=== PATIENT | male | born 1955 | race Caucasian/White ===

== ENCOUNTER 2018-06-20 03:41 | Inpatient (IN) ==
[2018-06-20] MEDS ORDERED: ASPIRIN 325 MG TABLET PO STA (04:02)
[2018-06-20] MEDS ORDERED: NITROGLYCERIN 2% OINT 1 INCH/GM PACK TOP STA (04:11)
[2018-06-20 04:16] LABS: Basophils # 0.1 10*3/uL (0.0-0.2); Basophils % 1.1 % (0.0-0.8); Eosinophils # 0.3 10*3/uL (0.0-0.87); Eosinophils % 3.1 % (0.00-10.9); Hematocrit 46.9 VOL% (42.0-52.0); Hemoglobin 15.3 GM/DL (14.0-18.0); Immature Granulocytes % 0.3 %; Immature Granulocytes Absolute 0.03 #; Lymphocytes # 3.8 10*3/uL (1.4-4.0); Lymphocytes % 40.4 % (21.2-54.2); Mean Corpuscular HGB Conc 32.6 GM/DL (32-36); Mean Corpuscular Hemoglobin 29 PG (27-34); Mean Corpuscular Volume 88.3 FL (87-102); Mean Platelet Volume 11.5 FL (9.6-12.0); Monocytes # 0.6 10*3/uL (0.11-0.8); Monocytes % 6.1 % (1.7-12.7); Neutrophils # 4.6 10*3/uL (1.4-7.4); Platelet Count 203 T/CUMM (130-400); Red Blood Count 5.31 MC/CUMM (3.8-5.5); Red Cell Distribution Width 12.7 % (9.3-17.3); White Blood Count 9.4 T/CUMM (4-12)
[2018-06-20 04:36] LABS: Albumin 3.9 G/DL (3.4-5.0); Bilirubin,Total 0.5 MG/DL (0.2-1.0); Calcium 8.6 MG/DL (8.5-10.1); Osmolality,Calculated 284.1 MOS/KG (273-304); Potassium 3.7 MMOL/L (3.5-5.1); Total Protein 7.4 G/DL (6.4-8.3)
[2018-06-20] MEDS ORDERED: NICOTINE 21 MG/24 HR PATCH TRANSDERM PRN (06:10)
[2018-06-20] MEDS ORDERED: ACETAMINOPHEN 325 MG TABLET PO PRN (06:10)
[2018-06-20] MEDS ORDERED: ONDANSETRON 4 MG/2 ML VIAL IV PRN (06:10)
[2018-06-20] MEDS ORDERED: diphenhydrAMINE CAP 25 MG CAPSULE PO PRN (06:10)
[2018-06-20] MEDS ORDERED: GLUCAGON 1 MG VIAL IM PRN (06:14)
[2018-06-20] MEDS ORDERED: DEXTROSE 50% 25 GM/50 ML VIAL IV PRN (06:14)
[2018-06-20 07:21] LABS: Risk Ratio 4.1; Thyroid Stimulating Hormone 16.6 uIU/ml (0.358-3.74)
[2018-06-20] MEDS ORDERED: DULOXETINE HCL 60 MG PO SCH (09:50)
[2018-06-20] MEDS ORDERED: DULoxetine 30 MG CAPSULE PO SCH (09:50)
[2018-06-20] MEDS ORDERED: CETIRIZINE 10 MG TABLET PO PRN (09:50)
[2018-06-20 09:53] LABS: Apearance,Urine CLEAR (Clear); Bilirubin,Urine Negative (Negative); Blood, Urine Negative (Negative); Glucose,Urine (UA) >=500 mg/dL (Negative); Hyaline Casts,Urine 3 /LPF (0-3); Ketones,Urine Negative (Negative); Mucus,Urine Occasional /LPF (Occasional); Nitrite,Urine Negative (Negative); Protein,Urine Negative; RBC,Urine 1 /HPF (0-4); Squamous Epithelial Cell,Urine Occasional /HPF (0-10); Urine Color Yellow (Yellow); Urine Specific Gravity 1.029 (1.001-1.035); Urine Urobilinogen < 2.0 EU/DL (0.2-1.0); WBC,Urine <1 /HPF (0-6)
[2018-06-20] MEDS ORDERED: ALBUTEROL 2.5 MG/3 ML NEB RESP TX PRN (10:30)
[2018-06-20] MEDS ORDERED: hydrOXYzine HCL 25 MG TABLET PO PRN (10:30)
[2018-06-20] MEDS: INSULIN REGULAR 100 UNIT/ML SUBCUT SCH ×4 (10:44→21:11)
[2018-06-20] MEDS: CHOLECALCIFEROL 1,000 UNIT TABLET PO SCH (11:17)
[2018-06-20] MEDS: OMEGA 3 ACID ETHYL ESTERS 1 GM CAPSULE PO SCH (11:17)
[2018-06-20] MEDS: FOLIC ACID 1 MG TABLET PO SCH (11:18)
[2018-06-20] MEDS: CALCIUM (CARBONATE)/VITAMIN D 600 MG-400 UNIT TABLET PO SCH (11:18)
[2018-06-20] MEDS: LEVOTHYROXINE 137 MCG TABLET PO SCH (11:18)
[2018-06-20] MEDS: FLUTICASONE 50 MCG NASAL SPRAY 16 GM BOTTLE BOTH NARES SCH (11:22)
[2018-06-20] MEDS: PANTOPRAZOLE 40 MG TABLET PO SCH (11:28)
[2018-06-20] MEDS: ENOXAPARIN 40 MG/0.4 ML SYRINGE SUBCUT SCH (11:32)
[2018-06-20] MEDS: amLODIPine 10 MG TABLET PO SCH (11:33)
[2018-06-20] MEDS ORDERED: DULoxetine 30 MG CAPSULE PO ONE (12:30)
[2018-06-20] MEDS: ARIPiprazole 5 MG TABLET PO SCH (13:29)
[2018-06-20] MEDS: MORPHINE 4 MG/1 ML VIAL IV PRN (17:46)
[2018-06-20] MEDS: SIMVASTATIN 40 MG TABLET PO SCH (21:11)
[2018-06-20] MEDS: INSULIN GLARGINE 100 UNIT/ML SUBCUT SCH (21:11)
[2018-06-21 04:34] LABS: Basophils # 0.1 10*3/uL (0.0-0.2); Basophils % 0.8 % (0.0-0.8); Eosinophils # 0.4 10*3/uL (0.0-0.87); Hematocrit 46.2 VOL% (42.0-52.0); Hemoglobin 15.3 GM/DL (14.0-18.0); Immature Granulocytes % 0.3 %; Immature Granulocytes Absolute 0.04 #; Lymphocytes # 4.1 10*3/uL (1.4-4.0); Lymphocytes % 34.6 % (21.2-54.2); Mean Corpuscular HGB Conc 33.1 GM/DL (32-36); Mean Corpuscular Hemoglobin 29 PG (27-34); Mean Corpuscular Volume 87.7 FL (87-102); Mean Platelet Volume 11.6 FL (9.6-12.0); Monocytes # 0.6 10*3/uL (0.11-0.8); Monocytes % 5.4 % (1.7-12.7); Neutrophils # 6.6 10*3/uL (1.4-7.4); Neutrophils % 55.9 % (38.7-73.9); Platelet Count 226 T/CUMM (130-400); Red Blood Count 5.27 MC/CUMM (3.8-5.5); Red Cell Distribution Width 12.5 % (9.3-17.3); White Blood Count 11.8 T/CUMM (4-12)
[2018-06-21 05:03] LABS: Calcium 8.6 MG/DL (8.5-10.1); Osmolality,Calculated 275.1 MOS/KG (273-304)
[2018-06-21] MEDS: LEVOTHYROXINE 137 MCG TABLET PO SCH (06:18)
[2018-06-21] MEDS ORDERED: DIAZEPAM 5 MG TABLET PO ONE (08:26)
[2018-06-21] MEDS ORDERED: MAGNESIUM SULF RIDER 2 GM in PREMIX 1 EACH IV PRN (08:26)
[2018-06-21] MEDS ORDERED: POTASSIUM CHLORIDE RIDER 10 MEQ in PREMIX 1 EACH IV PRN (08:26)
[2018-06-21] MEDS ORDERED: diphenhydrAMINE CAP 25 MG CAPSULE PO ONE (08:26)
[2018-06-21] MEDS: ARIPiprazole 5 MG TABLET PO SCH (08:48)
[2018-06-21] MEDS: CHOLECALCIFEROL 1,000 UNIT TABLET PO SCH (08:48)
[2018-06-21] MEDS: FOLIC ACID 1 MG TABLET PO SCH (08:48)
[2018-06-21] MEDS: PANTOPRAZOLE 40 MG TABLET PO SCH (08:48)
[2018-06-21] MEDS: CALCIUM (CARBONATE)/VITAMIN D 600 MG-400 UNIT TABLET PO SCH (08:48)
[2018-06-21] MEDS: amLODIPine 10 MG TABLET PO SCH (08:49)
[2018-06-21] MEDS: ASPIRIN EC 81 MG TABLET PO SCH (08:49)
[2018-06-21] MEDS: OMEGA 3 ACID ETHYL ESTERS 1 GM CAPSULE PO SCH (08:49)
[2018-06-21] MEDS: ENOXAPARIN 120 MG/0.8 ML SYRINGE SUBCUT SCH ×2 (08:51→20:48)
[2018-06-21] MEDS: INSULIN REGULAR 100 UNIT/ML SUBCUT SCH ×4 (08:51→21:00)
[2018-06-21] MEDS: FLUTICASONE 50 MCG NASAL SPRAY 16 GM BOTTLE BOTH NARES SCH (08:53)
[2018-06-21] MEDS: DULoxetine 30 MG CAPSULE PO SCH ×2 (08:54→09:34)
[2018-06-21] MEDS ORDERED: ASPIRIN EC 325 MG TABLET PO SCH (09:00)
[2018-06-21 09:01] LABS: PT Patient Result 10.7 SECS
[2018-06-21] MEDS: SODIUM CHLORIDE 0.45% 1,000 ML IV SCH ×2 (09:45→22:35)
[2018-06-21] MEDS: ENOXAPARIN 40 MG/0.4 ML SYRINGE SUBCUT SCH (09:46)
[2018-06-21] MEDS ORDERED: HEPARIN/NACL 0.9% 2 UNITS/ML 1,000 ML IV ONE (12:04)
[2018-06-21] MEDS ORDERED: LIDOCAINE 1%/EPI INJ 20 ML VIAL ONE (12:10)
[2018-06-21] MEDS ORDERED: HEPARIN/NACL 0.9% 2 UNITS/ML 500 ML IV ONE (13:18)
[2018-06-21] MEDS ORDERED: fentaNYL 100 MCG/2 ML VIAL ONE (13:23)
[2018-06-21] MEDS ORDERED: MIDAZOLAM 2 MG/2 ML VIAL ONE (13:23)
[2018-06-21] MEDS ORDERED: TIROFIBAN 5,000 MCG/100 ML PREMIX IV ONE (13:57)
[2018-06-21] MEDS ORDERED: ENOXAPARIN 60 MG/0.6 ML SYRINGE ONE (13:59)
[2018-06-21] MEDS ORDERED: TICAGRELOR 90 MG TABLET ONE (14:12)
[2018-06-21] MEDS ORDERED: ACETAMINOPHEN 325 MG TABLET ONE (15:18)
[2018-06-21] MEDS ORDERED: MORPHINE 10 MG/1 ML VIAL ONE (15:49)
[2018-06-21] MEDS: MORPHINE 4 MG/1 ML VIAL IV PRN ×2 (15:55→20:45)
[2018-06-21] MEDS: NITROGLYCERIN 2% OINT 1 INCH/GM PACK TOP SCH ×2 (17:16→18:38)
[2018-06-21] MEDS: SIMVASTATIN 40 MG TABLET PO SCH (20:48)
[2018-06-21] MEDS: TICAGRELOR 90 MG TABLET PO SCH (20:48)
[2018-06-21] MEDS: INSULIN GLARGINE 100 UNIT/ML SUBCUT SCH (20:59)
[2018-06-22] MEDS: NITROGLYCERIN 2% OINT 1 INCH/GM PACK TOP SCH ×2 (00:56→06:41)
[2018-06-22] MEDS: MORPHINE 4 MG/1 ML VIAL IV PRN (02:19)
[2018-06-22 04:54] LABS: Basophils # 0.1 10*3/uL (0.0-0.2); Basophils % 0.9 % (0.0-0.8); Eosinophils # 0.3 10*3/uL (0.0-0.87); Eosinophils % 2.5 % (0.00-10.9); Hematocrit 45.8 VOL% (42.0-52.0); Hemoglobin 15.4 GM/DL (14.0-18.0); Immature Granulocytes % 0.4 %; Immature Granulocytes Absolute 0.04 #; Lymphocytes # 3.3 10*3/uL (1.4-4.0); Lymphocytes % 31.5 % (21.2-54.2); Mean Corpuscular HGB Conc 33.6 GM/DL (32-36); Mean Corpuscular Hemoglobin 29 PG (27-34); Mean Corpuscular Volume 85.9 FL (87-102); Mean Platelet Volume 11.7 FL (9.6-12.0); Monocytes # 0.7 10*3/uL (0.11-0.8); Monocytes % 6.5 % (1.7-12.7); Neutrophils # 6.1 10*3/uL (1.4-7.4); Neutrophils % 58.2 % (38.7-73.9); Platelet Count 216 T/CUMM (130-400); Red Blood Count 5.33 MC/CUMM (3.8-5.5); Red Cell Distribution Width 12.7 % (9.3-17.3); White Blood Count 10.5 T/CUMM (4-12)
[2018-06-22 05:09] LABS: Calcium 8.5 MG/DL (8.5-10.1); Osmolality,Calculated 275.1 MOS/KG (273-304); Potassium 3.9 MMOL/L (3.5-5.1)
[2018-06-22] MEDS: LEVOTHYROXINE 137 MCG TABLET PO SCH (06:41)
[2018-06-22] MEDS ORDERED: LEVOTHYROXINE 150 MCG TABLET PO SCH (07:42)
[2018-06-22 08:28] VITALS: BP 141/74
[2018-06-22] MEDS: INSULIN REGULAR 100 UNIT/ML SUBCUT SCH (09:18)
[2018-06-22] MEDS: ENOXAPARIN 120 MG/0.8 ML SYRINGE SUBCUT SCH (09:18)
[2018-06-22] MEDS: FOLIC ACID 1 MG TABLET PO SCH (09:18)
[2018-06-22] MEDS: CALCIUM (CARBONATE)/VITAMIN D 600 MG-400 UNIT TABLET PO SCH (09:19)
[2018-06-22] MEDS: ASPIRIN EC 81 MG TABLET PO SCH (09:19)
[2018-06-22] MEDS: OMEGA 3 ACID ETHYL ESTERS 1 GM CAPSULE PO SCH (09:19)
[2018-06-22] MEDS: ARIPiprazole 5 MG TABLET PO SCH (09:19)
[2018-06-22] MEDS: TICAGRELOR 90 MG TABLET PO SCH (09:20)
[2018-06-22] MEDS: DULoxetine 30 MG CAPSULE PO SCH (09:20)
[2018-06-22] MEDS: amLODIPine 10 MG TABLET PO SCH (09:20)
[2018-06-22] MEDS: PANTOPRAZOLE 40 MG TABLET PO SCH (09:20)
[2018-06-22] MEDS: CHOLECALCIFEROL 1,000 UNIT TABLET PO SCH (09:21)
[2018-06-22] MEDS: FLUTICASONE 50 MCG NASAL SPRAY 16 GM BOTTLE BOTH NARES SCH (09:21)
== END 2018-06-22 13:05 | disposition home or self-care (01) | DRG 247 ==
LOC: SUATTDRO → N.ED 03:41 → N.EDINP 03:41 → N.4E 12:20 → N.TELES 06-21 16:53
PROVIDERS: ADMIT Internal Medicine; ATTEND Internal Medicine
PROC: CLCCHCL (ICD-10-PCS; 2018-06-21 13:15)

== ENCOUNTER 2020-08-24 10:25 | Inpatient (IN) ==
[2020-08-24 11:04] LABS: Basophils # 0.1 10*3/uL (0.0-0.2); Basophils % 1.1 % (0.0-0.8); Eosinophils # 0.3 10*3/uL (0.0-0.87); Eosinophils % 6.8 % (0.00-10.9); Hematocrit 35.4 VOL% (42.0-52.0); Hemoglobin 11.7 GM/DL (14.0-18.0); Immature Granulocytes % 0.2 %; Immature Granulocytes Absolute 0.01 #; Lymphocytes # 2.1 10*3/uL (1.4-4.0); Lymphocytes % 44.4 % (21.2-54.2); Mean Corpuscular HGB Conc 33.1 GM/DL (32-36); Mean Corpuscular Volume 83.5 FL (87-102); Mean Platelet Volume 11.3 FL (9.6-12.0); Monocytes % 6.2 % (1.7-12.7); Neutrophils % 41.3 % (38.7-73.9); Platelet Count 181 T/CUMM (130-400); Red Blood Count 4.24 MC/CUMM (3.8-5.5); Red Cell Distribution Width 13.1 % (9.3-17.3); White Blood Count 4.7 T/CUMM (4-12)
[2020-08-24] MEDS ORDERED: ALBUTEROL/IPRATROPIUM 3 ML NEB RESP TX STA (11:20)
[2020-08-24] MEDS ORDERED: SODIUM CHLORIDE 0.9% 1,000 ML IV STA (11:20)
[2020-08-24 11:26] LABS: Atypical Lymphocytes Few; Eosinophils 7 % (0-10); Hypochromasia 1+; Lymphocytes 43 % (20-55); Microcytosis 1+; Segmented Neutrophils 45 % (50-85); Total Cells Counted 100
[2020-08-24 11:27] LABS: Ovalocytes Slight
[2020-08-24 11:28] LABS: Bilirubin,Total 0.7 MG/DL (0.2-1.0); Calcium 8.5 MG/DL (8.5-10.1); Osmolality,Calculated 280.1 MOS/KG (273-304); Potassium 3.3 MMOL/L (3.5-5.1); Total Protein 7.6 G/DL (6.4-8.2)
[2020-08-24 11:47] LABS: Amorphous Crystals,Urine Occasional /HPF (Few); Bacteria,Urine Occasional /HPF (Few); Bilirubin,Urine Negative (Negative); Blood, Urine Small mg/dL (Negative); Glucose,Urine (UA) 50 mg/dL (Negative); Hyaline Casts,Urine 11 /LPF (0-3); Ketones,Urine Negative (Negative); Mucus,Urine Occasional /LPF (Occasional); Nitrite,Urine Negative (Negative); Protein,Urine Negative; RBC,Urine <1 /HPF (0-4); Squamous Epithelial Cell,Urine Occasional /HPF (0-10); Urine Appearance CLEAR (Clear); Urine Color Amber (Yellow); Urine Specific Gravity 1.024 (1.001-1.035)
[2020-08-24 12:14] LABS: PT Patient Result 11.7 SECS (10.5-12.0); Partial Thromboplastin Time 27.1 SECS (23.9-33.8)
[2020-08-24] MEDS ORDERED: POTASSIUM CHLORIDE 20 MEQ TABLET PO ONE (13:56)
[2020-08-24] MEDS ORDERED: hydrALAZINE 20 MG/1 ML VIAL IV PRN (13:57)
[2020-08-24] MEDS ORDERED: ACETAMINOPHEN 325 MG TABLET PO PRN (13:57)
[2020-08-24] MEDS ORDERED: DEXTROSE 50% 25 GM/50 ML VIAL IV PRN (13:57)
[2020-08-24] MEDS ORDERED: ONDANSETRON 4 MG/2 ML VIAL IV PRN (13:57)
[2020-08-24] MEDS ORDERED: GLUCAGON 1 MG VIAL IM PRN (13:57)
[2020-08-24] MEDS ORDERED: CETIRIZINE 10 MG TABLET PO PRN (15:15)
[2020-08-24] MEDS ORDERED: NITROGLYCERIN SL 0.4 MG TABLET SL PRN (15:15)
[2020-08-24] MEDS ORDERED: ALBUTEROL 2.5 MG/3 ML NEB RESP TX PRN (15:23)
[2020-08-24 15:25] LABS: Risk Ratio 2.61; VLDL CHOLESTEROL 23.4 MG/DL
[2020-08-24] MEDS ORDERED: hydrOXYzine HCL 25 MG TABLET PO PRN (15:25)
[2020-08-24] MEDS: POTASSIUM CHLORIDE INJ 10 MEQ in SODIUM CHLORIDE 0.9% 1,000 ML IV SCH (15:29)
[2020-08-24] MEDS: ENOXAPARIN 40 MG/0.4 ML SYRINGE SUBCUT SCH (15:29)
[2020-08-24] MEDS: INSULIN LISPRO 100 UNIT/ML SUBCUT SCH ×2 (15:40→20:57)
[2020-08-24 15:45] LABS: % Iron Saturation 13.7 % (18-50)
[2020-08-24] MEDS: GABAPENTIN 600 MG TABLET PO SCH (20:49)
[2020-08-24] MEDS: TICAGRELOR 90 MG TABLET PO SCH (20:49)
[2020-08-24] MEDS: INSULIN GLARGINE 100 UNIT/ML SUBCUT SCH (20:58)
[2020-08-25] MEDS: POTASSIUM CHLORIDE INJ 10 MEQ in SODIUM CHLORIDE 0.9% 1,000 ML IV SCH (05:04)
[2020-08-25 05:05] LABS: Basophils # 0.1 10*3/uL (0.0-0.2); Basophils % 1.1 % (0.0-0.8); Eosinophils # 0.4 10*3/uL (0.0-0.87); Eosinophils % 8.3 % (0.00-10.9); Hemoglobin 11.6 GM/DL (14.0-18.0); Immature Granulocytes % 0.2 %; Immature Granulocytes Absolute 0.01 #; Lymphocytes % 43.1 % (21.2-54.2); Mean Corpuscular HGB Conc 33.1 GM/DL (32-36); Mean Corpuscular Volume 82.9 FL (87-102); Mean Platelet Volume 11.3 FL (9.6-12.0); Monocytes % 7.2 % (1.7-12.7); Neutrophils % 40.1 % (38.7-73.9); Platelet Count 167 T/CUMM (130-400); Red Blood Count 4.22 MC/CUMM (3.8-5.5); Red Cell Distribution Width 13.2 % (9.3-17.3); White Blood Count 4.6 T/CUMM (4-12)
[2020-08-25 05:29] LABS: Hypochromasia 1+; Microcytosis 1+
[2020-08-25 05:30] LABS: Ovalocytes Slight; Platelet Estimate Adequate
[2020-08-25 05:54] LABS: Calcium 8.4 MG/DL (8.5-10.1); Osmolality,Calculated 286.1 MOS/KG (273-304); Potassium 4.1 MMOL/L (3.5-5.1)
[2020-08-25] MEDS: LEVOTHYROXINE 150 MCG TABLET PO SCH (06:42)
[2020-08-25] MEDS ORDERED: DULoxetine 30 MG CAPSULE PO SCH ×2 (09:00)
[2020-08-25] MEDS: FERROUS SULFATE 325 MG TABLET PO SCH ×2 (09:01→21:59)
[2020-08-25] MEDS: TICAGRELOR 90 MG TABLET PO SCH ×2 (09:01→21:59)
[2020-08-25] MEDS: ISOSORBIDE MONONITRATE 30 MG TABLET PO SCH (09:01)
[2020-08-25] MEDS: ASPIRIN CHEW 81 MG TABLET PO SCH (09:01)
[2020-08-25] MEDS: FLUTICASONE 50 MCG NASAL SPRAY 16 GM BOTTLE BOTH NARES SCH (09:22)
[2020-08-25] MEDS: INSULIN LISPRO 100 UNIT/ML SUBCUT SCH ×4 (09:22→22:20)
[2020-08-25] MEDS: ENOXAPARIN 40 MG/0.4 ML SYRINGE SUBCUT SCH (14:22)
[2020-08-25] MEDS ORDERED: DEXTROAMPHETAMINE AMPHETAMINE 10 MG PO SCH (15:00)
[2020-08-25] MEDS: GABAPENTIN 600 MG TABLET PO SCH (21:59)
[2020-08-25] MEDS: ATORVASTATIN 40 MG TABLET PO SCH (21:59)
[2020-08-25] MEDS: INSULIN GLARGINE 100 UNIT/ML SUBCUT SCH (22:00)
[2020-08-25] MEDS: DEXTROAMPHETAMINE AMPHETAMINE 10 MG PO SCH (22:20)
[2020-08-26] MEDS: LEVOTHYROXINE 150 MCG TABLET PO SCH (06:45)
[2020-08-26 06:51] LABS: Basophils # 0.1 10*3/uL (0.0-0.2); Basophils % 1.1 % (0.0-0.8); Eosinophils # 0.4 10*3/uL (0.0-0.87); Eosinophils % 7.2 % (0.00-10.9); Hematocrit 34.8 VOL% (42.0-52.0); Hemoglobin 11.7 GM/DL (14.0-18.0); Immature Granulocytes % 0.2 %; Immature Granulocytes Absolute 0.01 #; Lymphocytes # 2.2 10*3/uL (1.4-4.0); Lymphocytes % 40.3 % (21.2-54.2); Mean Corpuscular HGB Conc 33.6 GM/DL (32-36); Mean Corpuscular Volume 83.1 FL (87-102); Mean Platelet Volume 11.3 FL (9.6-12.0); Monocytes % 4.4 % (1.7-12.7); Neutrophils % 46.8 % (38.7-73.9); Platelet Count 182 T/CUMM (130-400); Red Blood Count 4.19 MC/CUMM (3.8-5.5); Red Cell Distribution Width 13.2 % (9.3-17.3); White Blood Count 5.4 T/CUMM (4-12)
[2020-08-26 07:10] LABS: Calcium 8.9 MG/DL (8.5-10.1); Osmolality,Calculated 276.8 MOS/KG (273-304); Potassium 3.9 MMOL/L (3.5-5.1)
[2020-08-26 07:12] LABS: Eosinophils 8 % (0-10); Hypochromasia Slight; Lymphocytes 40 % (20-55); Microcytosis Slight; Platelet Estimate Adequate; Segmented Neutrophils 49 % (50-85); Total Cells Counted 100
[2020-08-26 07:13] LABS: Atypical Lymphocytes Few
[2020-08-26] MEDS ORDERED: amLODIPine 10 MG TABLET PO SCH (09:00)
[2020-08-26] MEDS: DULoxetine 30 MG CAPSULE PO SCH (10:02)
[2020-08-26] MEDS: FLUTICASONE 50 MCG NASAL SPRAY 16 GM BOTTLE BOTH NARES SCH (10:02)
[2020-08-26] MEDS: TICAGRELOR 90 MG TABLET PO SCH ×2 (10:03→21:00)
[2020-08-26] MEDS: ISOSORBIDE MONONITRATE 30 MG TABLET PO SCH (10:03)
[2020-08-26] MEDS: ARIPiprazole 5 MG TABLET PO SCH (10:03)
[2020-08-26] MEDS: amLODIPine 5 MG TABLET PO SCH (10:03)
[2020-08-26] MEDS: FERROUS SULFATE 325 MG TABLET PO SCH ×2 (10:03→21:00)
[2020-08-26] MEDS: ASPIRIN CHEW 81 MG TABLET PO SCH (10:03)
[2020-08-26] MEDS: DEXTROAMPHETAMINE AMPHETAMINE 10 MG PO SCH ×2 (10:06→22:10)
[2020-08-26] MEDS: INSULIN LISPRO 100 UNIT/ML SUBCUT SCH ×4 (10:08→20:03)
[2020-08-26] MEDS: ENOXAPARIN 40 MG/0.4 ML SYRINGE SUBCUT SCH (13:12)
[2020-08-26] MEDS: GABAPENTIN 600 MG TABLET PO SCH (21:00)
[2020-08-26] MEDS: ATORVASTATIN 40 MG TABLET PO SCH (21:00)
[2020-08-26] MEDS: INSULIN GLARGINE 100 UNIT/ML SUBCUT SCH (21:02)
[2020-08-27 04:05] LABS: Basophils # 0.1 10*3/uL (0.0-0.2); Basophils % 0.9 % (0.0-0.8); Eosinophils # 0.4 10*3/uL (0.0-0.87); Eosinophils % 5.9 % (0.00-10.9); Hematocrit 38.4 VOL% (42.0-52.0); Hemoglobin 12.4 GM/DL (14.0-18.0); Immature Granulocytes % 0.3 %; Immature Granulocytes Absolute 0.02 #; Lymphocytes # 2.8 10*3/uL (1.4-4.0); Lymphocytes % 43.6 % (21.2-54.2); Mean Corpuscular HGB Conc 32.3 GM/DL (32-36); Neutrophils % 44.3 % (38.7-73.9); Platelet Count 207 T/CUMM (130-400); Red Blood Count 4.52 MC/CUMM (3.8-5.5); Red Cell Distribution Width 13.2 % (9.3-17.3); White Blood Count 6.4 T/CUMM (4-12)
[2020-08-27 04:45] LABS: Calcium 8.8 MG/DL (8.5-10.1); Osmolality,Calculated 274.8 MOS/KG (273-304); Potassium 3.6 MMOL/L (3.5-5.1)
[2020-08-27] MEDS: LEVOTHYROXINE 150 MCG TABLET PO SCH (06:04)
[2020-08-27] MEDS: INSULIN LISPRO 100 UNIT/ML SUBCUT SCH ×4 (09:10→21:47)
[2020-08-27] MEDS: ARIPiprazole 5 MG TABLET PO SCH (09:12)
[2020-08-27] MEDS: TICAGRELOR 90 MG TABLET PO SCH ×2 (09:13→21:24)
[2020-08-27] MEDS: FERROUS SULFATE 325 MG TABLET PO SCH ×2 (09:13→21:24)
[2020-08-27] MEDS: DULoxetine 30 MG CAPSULE PO SCH (09:13)
[2020-08-27] MEDS: ASPIRIN CHEW 81 MG TABLET PO SCH (09:13)
[2020-08-27] MEDS: ISOSORBIDE MONONITRATE 30 MG TABLET PO SCH (09:13)
[2020-08-27] MEDS: amLODIPine 5 MG TABLET PO SCH (09:13)
[2020-08-27] MEDS: DEXTROAMPHETAMINE AMPHETAMINE 10 MG PO SCH ×2 (09:14→20:03)
[2020-08-27] MEDS: FLUTICASONE 50 MCG NASAL SPRAY 16 GM BOTTLE BOTH NARES SCH (09:14)
[2020-08-27] MEDS ORDERED: TUBERCULIN SKIN TEST 0.1 ML SYRINGE INTRADERM ONE ×2 (10:35→10:46)
[2020-08-27] MEDS: ENOXAPARIN 40 MG/0.4 ML SYRINGE SUBCUT SCH (17:10)
[2020-08-27] MEDS: ATORVASTATIN 40 MG TABLET PO SCH (21:24)
[2020-08-27] MEDS: GABAPENTIN 600 MG TABLET PO SCH (21:24)
[2020-08-27] MEDS: INSULIN GLARGINE 100 UNIT/ML SUBCUT SCH (21:41)
[2020-08-28] MEDS: LEVOTHYROXINE 150 MCG TABLET PO SCH (06:34)
[2020-08-28] MEDS: amLODIPine 5 MG TABLET PO SCH (08:43)
[2020-08-28] MEDS: DULoxetine 30 MG CAPSULE PO SCH (08:43)
[2020-08-28] MEDS: ISOSORBIDE MONONITRATE 30 MG TABLET PO SCH (08:43)
[2020-08-28] MEDS: ARIPiprazole 5 MG TABLET PO SCH (08:43)
[2020-08-28] MEDS: FLUTICASONE 50 MCG NASAL SPRAY 16 GM BOTTLE BOTH NARES SCH (08:44)
[2020-08-28] MEDS: TICAGRELOR 90 MG TABLET PO SCH (08:44)
[2020-08-28] MEDS: FERROUS SULFATE 325 MG TABLET PO SCH (08:44)
[2020-08-28] MEDS: ASPIRIN CHEW 81 MG TABLET PO SCH (08:44)
[2020-08-28] MEDS: INSULIN LISPRO 100 UNIT/ML SUBCUT SCH ×2 (08:49→12:35)
[2020-08-28] MEDS: DEXTROAMPHETAMINE AMPHETAMINE 10 MG PO SCH (08:49)
[2020-08-28 11:57] VITALS: BP 156/77
[2020-08-28] MEDS: ENOXAPARIN 40 MG/0.4 ML SYRINGE SUBCUT SCH (15:03)
== END 2020-08-28 15:08 | disposition home health service (06) | DRG 312 ==
LOC: N.ED 10:25 → N.TELEN 10:25 → SUATTDRO 13:50 → N.TELEN 14:25
PROVIDERS: ADMIT Internal Medicine; ATTEND Internal Medicine Geriatric Medicine